=== PATIENT | male | born 1985 | race Caucasian/White ===

== ENCOUNTER → 2025-10-18 | Outpatient (CLI) | payer OTHER ==
[~2025-10-18] MED LIST: ALBU90OI INH; AZIT250 PO; CEPH500 PO; HYDACE5 PO; METPRE4DP PO
[2025-10-19 12:04] LABS: Chlamydia Trachomatis Urine NOT DETECTED (NOT DETECT); Neisseria Gonorrhoea Urine NOT DETECTED (NOT DETECT)
== END ==
LOC: LAB 18:57 → LAB SHORT 18:57
PROVIDERS: Student in an Organized Health Care Education/Training Program
DX: R50.9 Fever, unspecified (principal)
CPT/HCPCS: 87491; 87591